=== PATIENT | male | born 1965 | race Hispanic/Latino ===

== ENCOUNTER 2019-02-26 02:36 | Emergency (ER) | payer SELFPAY ==
[2019-02-26] MEDS ORDERED: KETOROLAC TROMETHAMINE 60 MG/2 ML VIAL ONE (03:17)
== END 2019-02-26 04:42 | disposition home or self-care (01) ==
LOC: EDH 02:36
DX: M70.22 Olecranon bursitis, left elbow (principal); F12.10 Cannabis abuse, uncomplicated; W01.0XXA Fall on same level from slipping, tripping and stumbling without subsequent striking against object, initial encounter; Y93.89 Activity, other specified; Y92.89 Other specified places as the place of occurrence of the external cause; Y99.8 Other external cause status
CPT/HCPCS: 73080; 96372; 99284; J1885